=== PATIENT | female | born 1995 | race Caucasian/White ===

== ENCOUNTER 2016-12-22 11:17 | Emergency (ER) | payer BC ==
[~2016-12-22] VITALS: Ht 170.2 cm; Wt 66.7 kg
[2016-12-22 11:23] VITALS: TEMP 36.6; Ht 170.2 cm; Wt 66.7 kg
[2016-12-22 12:11] LABS: BASO % 0.2 %; BASO ABS # 0.01 K/uL (0-0.2); COMPLETE YES; EOS % 2.9 %; HEMATOCRIT 40.5 % (37-47); IG% 0.2 %; LYMPH % 35.3 %; LYMPH ABS # 2.04 K/uL (1.2-3.4); MEAN CELL VOLUME 82.7 fL (80-100); MEAN CORPUSCULAR HEMOGLOBIN 27.6 pg (25-34); MEAN CORPUSCULAR HGB CONC 33.3 g/dl (32-36); MEAN PLATELET VOLUME 10.7 fL (7.4-10.4); MONO % 12.1 %; NEUT % 49.3 %; PLATELET COUNT 222 K/uL (130-400); WHITE BLOOD COUNT 5.78 K/uL (4.8-10.8)
[2016-12-22 12:17] LABS: URINE APPEARANCE CLEAR (CLEAR); URINE BILIRUBIN NEG (NEG); URINE COLOR YELLOW; URINE NITRITE NEG (NEG); URINE SPECIFIC GRAVITY 1.015 (1.000-1.030); UROBILINOGEN NEG (NEG); ZZUR CULT IF INDIC CLEAN CATCH NO
[2016-12-22] MEDS ORDERED: BCPILLS PO (12:22)
--- NOTE | 2016-12-22 12:23 | DIAGNOSTIC IMAGING REPORT ---
CT OF THE HEAD WITHOUT CONTRAST CLINICAL HISTORY: New onset headaches, nausea and blurry vision. COMPARISON STUDY: No previous studies for comparison. CT DOSE: 537.48 mGy.cm TECHNIQUE: Helical axial images of the head were obtained without IV contrast. Automated exposure control was utilized for the study. FINDINGS: No acute intracranial hemorrhage, midline shift or mass effect is present. Brain volume is normal. Ventricular system is normal. Basilar cisterns are patent. There are no extra-axial collections. Escalona-white differentiation is maintained. There are no findings to suggest acute dural sinus thrombosis or acute territorial infarct. There is moderate mucosal thickening of the right sphenoid sinus. Mastoid air cells are clear. There are no significant calvarial abnormalities. IMPRESSION: 1. No acute intracranial findings. 2. Moderate mucosal thickening of the right sphenoid sinus. Electronically signed by: Talha Simpson M.D. 12/22/2016 12:21 PM Dictated Date/Time: 12/22/2016 12:20 PM
[2016-12-22 12:27] LABS: MANUAL MICROSCOPIC REQUIRED? NO; REVIEW REQ? NO
[2016-12-22 12:32] LABS: CALCIUM 9.4 mg/dl (8.5-10.1); CREATININE 0.81 mg/dl (0.60-1.20); POTASSIUM 3.6 mmol/L (3.5-5.1)
[2016-12-22 12:42] LABS: ALB/GLOB RATIO 0.9 (0.9-2); THYROID STIMULATING HORMONE 1.62 uIu/ml (0.300-4.500)
[2016-12-22] MEDS ORDERED: AMOX875T PO (12:57)
--- NOTE | 2016-12-22 12:59 | EMERGENCY ROOM VISIT NOTE ---
History First contact with patient: 11:35 Chief Complaint: HEADACHE Stated Complaint: MIGRAINE,NAUSEA,BLURRED VISION History of Present Illness The patient is a 21 year old female who presents to the Emergency Room with complaints of headaches over the past 2-3 months. The patient states that over the past few months, she has been having frequent headaches, usually 4 times a week. She states that the headaches usually occur in the evening and resolve overnight. She does not have a history of migraines or other headache disorders. The patient occasionally takes ibuprofen for the headaches. She reports she has associated light sensitivity, nausea, difficulty focusing, and occasional floaters in her vision. She states the headache becomes worse when she moves her head suddenly. She sometimes has pain in the upper neck/base of the skull. She reports only a mild headache at this time and rates her discomfort a 3/10. The patient was seen by urgent care and was told to follow- up with her primary care provider. She states that she called her primary care provider in [place], but is not able to see them so they recommended she come here for evaluation. She denies any recent illnesses, fevers/chills, numbness, weakness, blurred vision or slurred speech. The patient does report a history of migraine headaches and her sister. Review of Systems A complete 10-point Review of Systems was discussed with the patient, with pertinent positives and negatives listed in the History of Present Illness. All remaining Review of Systems questions can be considered negative unless otherwise specified. Social History Smoking Status: Never Smoker Current/Historical Medications Scheduled Amoxicillin & Pot Clavulanate (Augmentin 875-125 mg), 1 TAB PO BID Control Pills ( Control Pills), 1 TAB PO DAILY Allergies Coded Allergies: No Known Allergies (Unverified , 12/22/16) Physical Exam Vital Signs Date Time Temp Pulse Resp B/P Pulse Ox O2 Delivery O2 Flow Rate FiO2 12/22/16 13:06 63 16 107/60 98 Room Air 12/22/16 11:23 36.6 79 18 149/71 99 Room Air Physical Exam VITALS: Vitals are noted on the nurse's note and reviewed by myself. Vital signs stable. GENERAL: This is a 21-year-old female, in no acute distress, nondiaphoretic, well-developed well-nourished. SKIN: The skin was without rashes. HEAD: Normocephalic atraumatic. EARS: External auditory canals clear, tympanic membranes pearly escalona without erythema or effusion bilaterally. EYES: Pupils equal round and reactive to light and accommodation. Conjunctivae without injection, sclerae without icterus. Extraocular movements intact. MOUTH: Mucous membranes moist. Tonsils are not enlarged. Pharynx without erythema or exudate. NECK: Supple without nuchal rigidity. No lymphadenopathy. No meningismus. HEART: Regular rate and rhythm without murmurs gallops or rubs. LUNGS: Clear to auscultation bilaterally without wheezes, rales or rhonchi. MUSCULOSKELETAL: Full range of motion in all extremities, strength 5/5 throughout. NEURO: Patient was alert and oriented to person place and time. Normal sensation to light and sharp touch. Deep tendon reflexes 2+ throughout. No focal neurological deficits. Normal finger to nose testing. Negative Romberg and pronator drift. Medical Decision & Procedures ER Provider Diagnostic Interpretation: CT OF THE HEAD WITHOUT CONTRAST CLINICAL HISTORY: New onset headaches, nausea and blurry vision. COMPARISON STUDY: No previous studies for comparison. CT DOSE: 537.48 mGy.cm TECHNIQUE: Helical axial images of the head were obtained without IV contrast. Automated exposure control was utilized for the study. FINDINGS: No acute intracranial hemorrhage, midline shift or mass effect is present. Brain volume is normal. Ventricular system is normal. Basilar cisterns are patent. There are no extra-axial collections. Escalona-white differentiation is maintained. There are no findings to suggest acute dural sinus thrombosis or acute territorial infarct. There is moderate mucosal thickening of the right sphenoid sinus. Mastoid air cells are clear. There are no significant calvarial abnormalities. IMPRESSION: 1. No acute intracranial findings. 2. Moderate mucosal thickening of the right sphenoid sinus. Laboratory Results 12/22/16 11:57 Red Blood Count 4.90, Mean Corpuscular Volume 82.7, Mean Corpuscular Hemoglobin 27.6, Mean Corpuscular Hemoglobin Concent 33.3, Mean Platelet Volume 10.7, Neutrophils (%) (Auto) 49.3, Lymphocytes (%) (Auto) 35.3, Monocytes (%) (Auto) 12.1, Eosinophils (%) (Auto) 2.9, Basophils (%) (Auto) 0.2, Neutrophils # (Auto ) 2.85, Lymphocytes # (Auto) 2.04, Monocytes # (Auto) 0.70, Eosinophils # (Auto ) 0.17, Basophils # (Auto) 0.01 12/22/16 11:57 Test 12/22/16 11:45 12/22/16 11:57 Urine Color YELLOW Urine Appearance CLEAR (CLEAR) Urine pH 5.0 (4.5-7.5) Urine Specific [place] 1.015 (1.000-1.030) Urine Protein NEG (NEG) Urine Glucose (UA) NEG (NEG) Urine Ketones NEG (NEG) Urine Occult Blood NEG (NEG) Urine Nitrite NEG (NEG) Urine Bilirubin NEG (NEG) Urine Urobilinogen NEG (NEG) Urine Leukocyte Esterase NEG (NEG) Urine Test NEG (NEG) White Blood Count 5.78 K/uL (4.8-10.8) Red Blood Count 4.90 M/uL (4.2-5.4) Hemoglobin 13.5 g/dL (12.0-16.0) Hematocrit 40.5 % (37-47) Mean Corpuscular Volume 82.7 fL (80-100) Mean Corpuscular Hemoglobin 27.6 pg (25-34) Mean Corpuscular Hemoglobin Concent 33.3 g/dl (32-36) Platelet Count 222 K/uL (130-400) Mean Platelet Volume 10.7 fL (7.4-10.4) Neutrophils (%) (Auto) 49.3 % Lymphocytes (%) (Auto) 35.3 % Monocytes (%) (Auto) 12.1 % Eosinophils (%) (Auto) 2.9 % Basophils (%) (Auto) 0.2 % Neutrophils # (Auto) 2.85 K/uL (1.4-6.5) Lymphocytes # (Auto) 2.04 K/uL (1.2-3.4) Monocytes # (Auto) 0.70 K/uL (0.11-0.59) Eosinophils # (Auto) 0.17 K/uL (0-0.5) Basophils # (Auto) 0.01 K/uL (0-0.2) RDW Standard Deviation 45.9 fL (36.4-46.3) RDW Coefficient of Variation 15.1 % (11.5-14.5) Immature Granulocyte % (Auto) 0.2 % Immature Granulocyte # (Auto) 0.01 K/uL (0.00-0.02) Anion Gap 9.0 mmol/L (3-11) Est Creatinine Clear Calc Drug Dose 105.1 ml/min Estimated GFR () 118.6 Estimated GFR (Non- 102.4 BUN/Creatinine Ratio 11.0 (10-20) Calcium Level 9.4 mg/dl (8.5-10.1) Total Bilirubin 0.4 mg/dl (0.2-1) Aspartate Amino Transf (AST/SGOT) 19 U/L (15-37) Alanine Aminotransferase (ALT/SGPT) 25 U/L (12-78) Alkaline Phosphatase 67 U/L (45-117) Total Protein 8.0 gm/dl (6.4-8.2) Albumin 3.8 gm/dl (3.4-5.0) Globulin 4.2 gm/dl (2.5-4.0) Albumin/Globulin Ratio 0.9 (0.9-2) Thyroid Stimulating Hormone (TSH) 1.620 uIu/ml (0.300-4.500) Medical Decision The differential diagnosis includes acute intracranial bleed, meningitis, encephalitis, mass or mass effect, sinusitis, infection, tumor, headache, temporal arteritis and carbon monoxide exposure, and migraine. The patient was evaluated as above. Labs were drawn and IV access was obtained. Imaging studies were performed and read by radiology as above. The patient is a 21-year-old female who presents today complaining of recurrent headaches over the past few months. As the patient has a new pattern of headaches, a CT scan was performed and showed no acute findings. There was some thickening of the right sphenoid sinus in addition she is to place the patient on Augmentin in case this may be causing her headaches. Labs were unremarkable. His uvula the patient will need close follow-up with a primary care provider or [facility]. I recommended that she make an appointment with them in the next few days and return here if she has any new/ worsening symptoms. She verbalized understanding of my assessment and treatment plan and was discharged home in good condition. The patient's case was reviewed with Dr. Hernandez, ED attending physician, who agreed with my assessment and treatment plan. Impression Primary Impression: Headache Departure Information Dispostion Home / Self-Care Condition GOOD Prescriptions Amoxicillin & Pot Clavulanate (Augmentin 875-125 mg) 1 Tab Tab 1 TAB PO BID for 10 Days, #20 TAB Prov: Karne Aguilera PA-C 12/22/16 Referrals No Doctor, Assigned (PCP) Patient Instructions [facility] Additional Instructions You have been treated in the Emergency Department for a Headache. You were prescribed Augmentin to be taken twice daily for 10 days. This is an antibiotic. All antibiotics have the potential to cause diarrhea. Stop this medication and contact a medical provider if you were to develop any significant adverse side effects including: wheezing, shortness of breath, passing out, vomiting, or a diffuse rash. Always take antibiotics as directed and COMPLETE the ENTIRE course regardless of the improvement of your symptoms. Excedrin Migraine: This is an enwn-fur-xedhchm headache medication. Take 1 dose at the first onset of a headache. Follow-up with [facility] within one week for further evaluation of your headaches. Return to the Emergency Department if your current symptoms worsen despite treatment course outlined above, or if you develop any of the following symptoms : intractable pain despite aforementioned treatment course, visual disturbances , loss of vision, unilateral weakness or facial drooping, slurring of speech, loss of coordination, or loss of consciousness. Problem Qualifiers Primary Impression: Headache Headache type: unspecified Headache chronicity pattern: episodic headache Intractability: not intractable Qualified Codes: R51 - Headache
[2016-12-22 13:06] VITALS: BP 107/60; PULSE 63; O2SAT 98
== END 2016-12-22 13:10 | disposition home or self-care (01) ==
LOC: C.EDB 11:19 → C.EDC 13:10
DX: R51 Headache (principal); Z79.3 Long term (current) use of hormonal contraceptives